=== PATIENT | female | born 1960 | race Caucasian/White ===

== ENCOUNTER → 2018-08-26 | Outpatient (CLI) | payer BC | LOC: CAT 08:05 | DX: K76.0 Fatty (change of) liver, not elsewhere classified (principal); R59.0 Localized enlarged lymph nodes ==

== ENCOUNTER → 2019-10-12 | Outpatient (CLI) | payer BC | LOC: RAD 12:39 | DX: R59.0 Localized enlarged lymph nodes (principal) ==

== ENCOUNTER → 2020-12-16 | Outpatient (CLI) | payer BC | LOC: CAT 09:09 | PROVIDERS: ATTEND Obstetrics & Gynecology | DX: K76.0 Fatty (change of) liver, not elsewhere classified (principal); R53.83 Other fatigue; R63.4 Abnormal weight loss; R63.0 Anorexia; R11.0 Nausea; Z90.710 Acquired absence of both cervix and uterus ==